=== PATIENT | female | born 1995 | race Caucasian/White ===

== ENCOUNTER 2017-06-22 02:14 | Emergency (ER) | payer SELFPAY | END 2017-06-22 02:31 | disposition left against medical advice (07) | LOC: NED 02:14 | DX: R10.9 Unspecified abdominal pain (principal); Z53.21 Procedure and treatment not carried out due to patient leaving prior to being seen by health care provider | CPT/HCPCS: 99281 ==

== ENCOUNTER 2017-08-13 15:26 | Emergency (ER) | payer OTHER ==
[2017-08-13 16:16] LABS: BILIRUBIN, URINE NEG (NEG); BLOOD, URINE MOD (NEG); GLUCOSE,URINE NEG (NEG); KETONE, URINE NEG (NEG); NITRITE,URINE NEG (NEG); PH, URINE 7.5 (5.0-8.5); URINE LEUKOCYTE ESTERASE LARGE (NEG)
[2017-08-13 16:19] LABS: URINE COLOR STRAW (YELLW/STRAW)
[2017-08-13 16:22] LABS: AUTOMATED NEUTROPHIL # 10.8 TH/MM3 (1.8-7.7); BASOPHIL % 0.3 % (0.0-2.0); EOSINOPHIL % 0.1 % (0.0-4.0); HEMATOCRIT 40.8 % (35.0-46.0); HEMO FLAGS DIFF FINAL; HEMOGLOBIN 14.2 GM/DL (11.6-15.3); LYMPH % 8.2 % (9.0-44.0); MEAN CELL VOLUME 88.4 FL (80.0-100.0); MEAN CORPUSCULAR HEMOGLOBIN 30.7 PG (27.0-34.0); MEAN CORPUSCULAR HGB CONC 34.8 % (32.0-36.0); MEAN PLATELET VOLUME 8.4 FL (7.0-11.0); MONO % 5.9 % (0.0-8.0); MONOCYTE # 0.7 TH/MM3 (0-0.9); NEUT % 85.5 % (16.0-70.0); PLATELET COUNT 372 TH/MM3 (150-450); RED BLOOD COUNT 4.62 MIL/MM3 (4.00-5.30); RED CELL DISTRIBUTION WIDTH 11.8 % (11.6-17.2); WHITE BLOOD COUNT 12.5 TH/MM3 (4.0-11.0)
[2017-08-13 16:24] LABS: METHOD OF COLLECTION CLEAN CATCH
[2017-08-13 16:25] LABS: CHLORIDE 103 MEQ/L (98-107); POTASSIUM 3.7 MEQ/L (3.5-5.1); SODIUM (NA) 135 MEQ/L (136-145); WHITE BLOOD CELL CLUMPS FEW
[2017-08-13 16:26] LABS: SQUAMOUS EPITHELIAL CELL URINE 0-1 /hpf (0-5)
[2017-08-13 16:27] LABS: BACTERIA, URINE RARE /hpf; COMMENT (UR) CULTURE INDICATED; CULTURE IF INDICATED CULTURE INDICATED
[2017-08-13 16:28] LABS: CALCIUM 8.9 MG/DL (8.5-10.1)
[2017-08-13 16:29] LABS: ALBUMIN 3.4 GM/DL (3.4-5.0); ANION GAP 7 MEQ/L (5-15); BICARBONATE 25.5 MEQ/L (21.0-32.0); BLOOD UREA NITROGEN 8 MG/DL (7-18); GLUCOSE,RANDOM 113 MG/DL (74-106); LIPASE 134 U/L (73-393)
[2017-08-13 16:31] LABS: ALT (GPT) 47 U/L (9-42); AST (GOT) 20 U/L (16-38)
[2017-08-13 16:32] LABS: CREATININE 0.58 MG/DL (0.50-1.00); GLOMERULAR FILTRATION RATE 133 ML/MIN (>89)
[2017-08-13 16:33] LABS: TOTAL BILIRUBIN ADULT 0.5 MG/DL (0.2-1.0); TOTAL PROTEIN 7.8 GM/DL (6.4-8.2)
[2017-08-13 16:34] LABS: ALKALINE PHOSPHATASE 82 U/L (45-117)
[2017-08-13 16:50] LABS: BETA HCG QUANT 10303 MIU/ML (0-5)
== END 2017-08-13 19:39 | disposition home or self-care (01) ==
LOC: PHED 15:26
DX: O26.891 Other specified pregnancy related conditions, first trimester (principal); N39.0 Urinary tract infection, site not specified; B96.20 Unspecified Escherichia coli [E. coli] as the cause of diseases classified elsewhere; Z3A.01 Less than 8 weeks gestation of pregnancy
CPT/HCPCS: 76705; 76801; 76817; 80053; 81001; 83690; 84702; 85025; 87077; 87086; 87186; 99284-25

== ENCOUNTER 2017-08-14 14:33 | Inpatient (IN) | payer SELFPAY ==
[~2017-08-14] VITALS: Ht 162.6 cm; Wt 86.5 kg
[~2017-08-14 14:33] MED LIST: MACR100C2 PO; ZOFR4TAB PO
[2017-08-14 14:44] VITALS: BP 132/71; PULSE 107; RESP 18; TEMP 99.6; O2SAT 100
[2017-08-14 16:49] LABS: BILIRUBIN, URINE NEG (NEG); BLOOD, URINE LARGE (NEG); GLUCOSE,URINE NEG (NEG); KETONE, URINE 40 mg/dL (NEG); NITRITE,URINE NEG (NEG); URINE COLOR YELLOW (YELLW/STRAW); URINE LEUKOCYTE ESTERASE LARGE (NEG)
[2017-08-14 16:56] LABS: WBC, URINE INNUM /hpf (0-5)
[2017-08-14 16:57] LABS: BACTERIA, URINE MOD /hpf; SQUAMOUS EPITHELIAL CELL URINE 0-5 /hpf (0-5)
--- NOTE | 2017-08-14 17:18 | PD ---
HPI Chief Complaint: Abdominal Pain Time Seen by Provider: 16:53 Travel History International Travel<30 days: No Contact w/Intl Traveler<30days: No Traveled to known affect area: No History of Present Illness HPI 20-year-old female complaining of abdominal pain. She says the pain started yesterday morning around 5 AM. She has been nauseated. Yesterday she was vomiting most of the day. She was a patient in the emergency department yesterday. At that time her beta titer was 10,000 303. Her white count was 12.5. An ultrasound of the pelvis showed an IUP at 5 weeks 6 days. Ultrasound of the abdomen did not show appendicitis. She did have 9-14 white cells in her urine and was treated for possible U TI she says that she has continued to have pain. She points to the right side of the lower and mid abdomen as the site of pain. She had been vomiting the day before but is been taking Zofran and has not vomited as much today. She says it feels like her stomach is going up. There has not been any vaginal bleeding PFSH Past Medical History Diminished Hearing: No Tetanus Vaccination: Unknown Influenza Vaccination: No ?: Social History Alcohol Use: Yes Tobacco Use: No Substance Use: No Allergies-Medications (Allergen,Severity, Reaction): Coded Allergies: No Known Drug Allergies (Verified Allergy, Unknown, 08/14/17) Reported Meds & Prescriptions Reported Meds & Active Scripts Active Macrobid (Nitrofurantoin Monohydrate Macrocrystals) 100 Mg Capsule 100 Mg PO BID Zofran (Ondansetron HCl) 4 Mg Tab 4 Mg PO Q6HR PRN Physical Exam Narrative GENERAL: Well-developed female SKIN: Focused skin assessment warm/dry. HEAD: Atraumatic. Normocephalic. EYES: Pupils equal and round. No scleral icterus. No injection or drainage. ENT: No nasal bleeding or discharge. Mucous membranes pink and moist. NECK: Trachea midline. No JVD. CARDIOVASCULAR: Regular rate and rhythm. No murmur appreciated. RESPIRATORY: No accessory muscle use. Clear to auscultation. Breath sounds equal bilaterally. GASTROINTESTINAL: Abdomen soft, there is some right mid abdominal tenderness without guarding or rigidity On pelvic exam there is some whitish discharge. There is some mild pain with movement of the cervix. No masses are felt. MUSCULOSKELETAL: No obvious deformities. No clubbing. No cyanosis. No edema. NEUROLOGICAL: Awake and alert. No obvious cranial nerve deficits. Motor grossly within normal limits. Normal speech. PSYCHIATRIC: Appropriate mood and affect; insight and judgment normal. Data Data Last Documented VS Vital Signs Date Time Temp Pulse Resp B/P (MAP) Pulse Ox O2 Delivery O2 Flow Rate FiO2 08/14/17 14:44 99.6 107 18 132/71 (91) 100 Orders Orders Urinalysis - C+S If Indicated (08/14/17 14:58) Ed Urine Pregnancytest Poc (08/14/17 14:58) Urine Culture (08/14/17 16:00) Complete Blood Count With Diff (08/14/17 17:15) Basic Metabolic Panel (Bmp) (08/14/17 17:15) Beta Hcg (Quant/Titer) (08/14/17 17:15) Sodium Chlor 0.9% 1000 Ml Inj (Ns 1000 M (08/14/17 17:30) Ceftriaxone Inj (Rocephin Inj) (08/14/17 17:30) Mri Abdomen W/O Contrast (08/14/17 ) Labs Laboratory Tests Test 08/14/17 16:00 Urine Color YELLOW Urine Turbidity CLOUDY Urine pH 6.0 Urine Specific [place] LESS/EQUAL 1.005 Urine Protein 100 mg/dL Urine Glucose (UA) NEG mg/dL Urine Ketones 40 mg/dL Urine Occult Blood LARGE Urine Nitrite NEG Urine Bilirubin NEG Urine Urobilinogen 0.2 MG/DL Urine Leukocyte Esterase LARGE Urine RBC 4-9 /hpf Urine WBC INNUM /hpf Urine Squamous Epithelial Cells 0-5 /hpf Urine Bacteria MOD /hpf Microscopic Urinalysis Comment CULTURE INDICATED MDM Medical Decision Making Medical Screen Exam Complete: Yes Emergency Medical Condition: Yes Medical Record Reviewed: Yes Differential Diagnosis Differential includes appendicitis, corpus luteum cyst, cervicitis, UTI Narrative Course Of note her urinalysis today shows innumerable white cells was yesterday the only 9-14 white cells. I have ordered a MRI of the abdomen to assess for possible appendicitis Christopher Morin MD August 14, 2017 17:18
[2017-08-14] MEDS ORDERED: cefTRIAXone INJ 1,000 MG in SODIUM CHLORIDE 0.9% INJ 100 ML IV ONE (17:30)
[2017-08-14] MEDS ORDERED: SODIUM CHLOR 0.9% 1000 ML INJ 1,000 ML IV ONE ×2 (17:30→21:30)
[2017-08-14 18:07] LABS: AUTOMATED NEUTROPHIL # 14.2 TH/MM3 (1.8-7.7); BASOPHIL % 0.3 % (0.0-2.0); HEMATOCRIT 41.2 % (35.0-46.0); HEMOGLOBIN 13.9 GM/DL (11.6-15.3); LYMPH % 4.8 % (9.0-44.0); LYMPHOCYTE # 0.8 TH/MM3 (1.0-4.8); MEAN CELL VOLUME 88.4 FL (80.0-100.0); MEAN CORPUSCULAR HEMOGLOBIN 29.9 PG (27.0-34.0); MEAN CORPUSCULAR HGB CONC 33.8 % (32.0-36.0); MONO % 7.8 % (0.0-8.0); MONOCYTE # 1.3 TH/MM3 (0-0.9); NEUT % 87.1 % (16.0-70.0); PLATELET COUNT 297 TH/MM3 (150-450); RED BLOOD COUNT 4.66 MIL/MM3 (4.00-5.30); RED CELL DISTRIBUTION WIDTH 11.5 % (11.6-17.2); WHITE BLOOD COUNT 16.3 TH/MM3 (4.0-11.0)
[2017-08-14 18:25] LABS: BICARBONATE 22.9 MEQ/L (21.0-32.0); CALCIUM 8.8 MG/DL (8.5-10.1)
[2017-08-14 18:29] LABS: CREATININE 0.66 MG/DL (0.50-1.00)
--- NOTE | 2017-08-14 20:24 | PD ---
Physical Exam Date Seen by Provider: August 14, 2017 Time Seen by Provider: 20:18 Narrative Accepted in transfer of care from Dr. Mortensen GENERAL: Well-developed well-nourished female no acute distress no respiratory distress; declining pain medication Data Data Last Documented VS Vital Signs Date Time Temp Pulse Resp B/P (MAP) Pulse Ox O2 Delivery O2 Flow Rate FiO2 08/14/17 21:25 99.1 95 16 102/67 (79) 99 Room Air Orders Orders Urinalysis - C+S If Indicated (08/14/17 14:58) Ed Urine Pregnancytest Poc (08/14/17 14:58) Urine Culture (08/14/17 16:00) Complete Blood Count With Diff (08/14/17 17:15) Basic Metabolic Panel (Bmp) (08/14/17 17:15) Beta Hcg (Quant/Titer) (08/14/17 17:15) Sodium Chlor 0.9% 1000 Ml Inj (Ns 1000 M (08/14/17 17:30) Ceftriaxone Inj (Rocephin Inj) (08/14/17 17:30) Mri Abdomen W/O Contrast (08/14/17 ) Sodium Chlor 0.9% 1000 Ml Inj (Ns 1000 M (08/14/17 21:30) Lactic Acid (08/14/17 21:21) Admit Order (Ed Use Only) (08/14/17 ) History Professor / Telemetry MARTHA.Q8H (08/14/17 21:39) Diet Npo (08/15/17 Breakfast) Activity Oob With Assistance (08/14/17 21:39) Notify Dr: Other (08/14/17 21:39) Ceftriaxone Inj (Rocephin Inj) (08/15/17 09:00) Admit To Inpatient (08/14/17 ) Vital Signs (Adult) Q4H (08/14/17 21:41) Activity Oob With Assistance (08/14/17 21:41) Sodium Chlor 0.9% 1000 Ml Inj (Ns 1000 M (08/14/17 21:41) Sodium Chloride 0.9% Flush (Ns Flush) (08/14/17 21:45) Sodium Chloride 0.9% Flush (Ns Flush) (08/15/17 09:00) Ondansetron Inj (Zofran Inj) (08/14/17 21:45) Basic Metabolic Panel (Bmp) (08/15/17 06:00) Comprehensive Metabolic Panel (08/15/17 06:00) Case Management Consult (08/14/17 21:41) Scd Bilateral/Knee High MARTHA.BID (08/14/17 21:41) Naloxone Inj (Narcan Inj) (08/14/17 21:45) Magnesium Hydroxide Liq (Milk Of Magnesi (08/14/17 21:45) Sennosides (Senokot) (08/14/17 21:45) Bisacodyl Supp (Dulcolax Supp) (08/14/17 21:45) Lactulose Liq (Lactulose Liq) (08/14/17 21:45) Inpatient Certification (08/14/17 ) Morphine Inj (Morphine Inj) (08/14/17 21:45) Labs Laboratory Tests Test 08/14/17 16:00 08/14/17 17:50 08/14/17 21:35 Urine Color YELLOW Urine Turbidity CLOUDY Urine pH 6.0 Urine Specific [place] LESS/EQUAL 1.005 Urine Protein 100 mg/dL Urine Glucose (UA) NEG mg/dL Urine Ketones 40 mg/dL Urine Occult Blood LARGE Urine Nitrite NEG Urine Bilirubin NEG Urine Urobilinogen 0.2 MG/DL Urine Leukocyte Esterase LARGE Urine RBC 4-9 /hpf Urine WBC INNUM /hpf Urine Squamous Epithelial Cells 0-5 /hpf Urine Bacteria MOD /hpf Microscopic Urinalysis Comment CULTURE INDICATED White Blood Count 16.3 TH/MM3 Red Blood Count 4.66 MIL/MM3 Hemoglobin 13.9 GM/DL Hematocrit 41.2 % Mean Corpuscular Volume 88.4 FL Mean Corpuscular Hemoglobin 29.9 PG Mean Corpuscular Hemoglobin Concent 33.8 % Red Cell Distribution Width 11.5 % Platelet Count 297 TH/MM3 Mean Platelet Volume 8.0 FL Neutrophils (%) (Auto) 87.1 % Lymphocytes (%) (Auto) 4.8 % Monocytes (%) (Auto) 7.8 % Eosinophils (%) (Auto) 0.0 % Basophils (%) (Auto) 0.3 % Neutrophils # (Auto) 14.2 TH/MM3 Lymphocytes # (Auto) 0.8 TH/MM3 Monocytes # (Auto) 1.3 TH/MM3 Eosinophils # (Auto) 0.0 TH/MM3 Basophils # (Auto) 0.0 TH/MM3 CBC Comment DIFF FINAL Differential Comment Blood Urea Nitrogen 7 MG/DL Creatinine 0.66 MG/DL Random Glucose 112 MG/DL Calcium Level 8.8 MG/DL Sodium Level 133 MEQ/L Potassium Level 3.5 MEQ/L Chloride Level 103 MEQ/L Carbon Dioxide Level 22.9 MEQ/L Anion Gap 7 MEQ/L Estimat Glomerular Filtration Rate 114 ML/MIN Human Chorionic Gonadotropin, Quant 68237 MIU/ML [facility] Medical Record Reviewed: Yes Supervised Visit with TYRONE: No Interpretation(s) CBC & BMP Diagram 08/14/17 17:50 Calcium Level 8.8 Vital Signs Date Time Temp Pulse Resp B/P (MAP) Pulse Ox O2 Delivery O2 Flow Rate FiO2 08/14/17 14:44 99.6 107 18 132/71 (91) 100 UA: Positive leukocyte esterase positive innumerable WBCs positive moderate bacteria; culture indicated (08/13/17 prelim cx: gm (-) rods >100k cfu/ml) Quantitative hC,263;(08/13/17: hc,303, pelvic US:single IUP 5w6d; us appendix:"no definitive fluid filled appendix identified") Differential Diagnosis Accepted in transfer of care from Dr. Mortensen; please refer to his dictation Narrative Course Accepted in transfer of care from Dr. Mortensen; follow up pending MR to r/o appendicitis; patient has received rocephin for UTI Patient has returned from undergoing MR; patient was seen yesterday for same complaint ultrasound identified 5 week 6 day intrauterine and no evidence for appendicitis; patient did have abnormal urinalysis and preliminary culture positive for greater than 100,000 colonies of gram-negative rods. At 9:29 PM patient reexamined patient has reproducible tenderness in the suprapubic distribution and primarily the right flank and right upper quadrant. Patient has had no findings for gallbladder disease; patient does not have heel strike pain on exam but reports she will strike pain with ambulation. Opportunity to have prior managing physician to compare exam from yesterday to today and has definitely changed location of discomfort is more localized to the flank. Patient given additional liter of normal saline plan will be to admit patient for observation as she does meet SIRS/sepsis criteria and ongoing IV fluids as well as IV antibiotics. I reviewed imaging studies from 08/13/17 ultrasound not convincing for acute appendicitis and MRI today reviewed with radiologist does not seem to be consistent with appendicitis in view of abnormal urinalysis and preliminary abnormal culture suspect patient is developing pyelonephritis; no anorexia, patient c/o hunger; onset of symptoms noted since around 6AM 08/13/17. Discussed w/ [facility] --admit for pyelonephritis, sepsis Sepsis Criteria SIRS Criteria (2 or more): Heart rate over 90, WBC > 94677, < 4000 or > 10% bands Sepsis Criteria (SIRS+source): Infect source susp/known (urine prelim cx from >100K cfu/ml gm (-) rods) Physician Communication Physician Communication discussed with Dr Pacheco for admission Diagnosis Primary Impression: Sepsis Additional Impressions: Pyelonephritis Pyelonephritis affecting , antepartum Qualified Codes: Z3A.01 - Less than 8 weeks gestation of Admitting Information Admitting Physician Requests: Admit Altagracia Hernandez MD August 14, 2017 20:24
--- NOTE | 2017-08-14 20:56 | RADRPT ---
EXAM DATE/TIME: 08/14/2017 19:53 [place] COMPARISON: No previous studies available for comparison. INDICATIONS : Appendicitis. Abdomen pain in right upper region while being . MEDICAL HISTORY : None. SURGICAL HISTORY : None. ENCOUNTER: Initial ACUITY: 1 day PAIN SCORE: 8/10 LOCATION: Right upper quadrant TECHNIQUE: Multiplanar, multisequence magnetic resonance imaging of the abdomen was performed without contrast. FINDINGS: LIVER: Normal size with normal signal intensity. No lesion is identified. Portal vein is within normal limi ts. BILIARY: There is no intra- or extra-hepatic biliary ductal dilatation. Gallbladder contains no stones. SPLEEN: Within normal limits. PANCREAS: Within normal limits. ADRENALS: Within normal limits. KIDNEYS: Normal size and signal intensity. There is no hydronephrosis or mass. OTHER: Aorta is nonaneurysmal. There is no lymphadenopathy. CONCLUSION: 1. No definite inflammatory changes are seen in the right lower quadrant pain. There is a gestational sac present in the uterus. Appendix is likely visualized within the right lower quadrant and is norm al caliber. Ranjith Clark MD on August 14, 2017 at 20:51 Board Certified Radiologist. This report was verified electronically.
[2017-08-14 21:25] VITALS: BP 102/67; PULSE 95; RESP 16; TEMP 99.1; O2SAT 99
[2017-08-14] MEDS ORDERED: SENNOSIDES 8.6 MG TAB PO PRN (21:45)
[2017-08-14] MEDS ORDERED: SODIUM CHLORIDE 0.9% FLUSH 10 ML FLUSH IV FLUSH PRN (21:45)
[2017-08-14] MEDS ORDERED: MORPHINE SULFATE 4 MG/ML INJ IV ONE (21:45)
[2017-08-14] MEDS ORDERED: NALOXONE HCL 0.4 MG/ML AMP IV PUSH PRN (21:45)
[2017-08-14] MEDS ORDERED: MAGNESIUM HYDROXIDE SUSP 30 ML CUP PO PRN (21:45)
[2017-08-14] MEDS ORDERED: BISACODYL 10 MG SUPP RECTAL PRN (21:45)
[2017-08-14] MEDS ORDERED: LACTULOSE SYRUP 20 GM/30 ML CUP PO PRN (21:45)
[2017-08-14] MEDS ORDERED: ONDANSETRON HCL 4 MG/2 ML VIAL IVP PRN (21:45)
[2017-08-14] MEDS ORDERED: MORPHINE SULFATE 2 MG/ML SYRINGE IV PUSH ONE (21:45)
[2017-08-14] MEDS: SODIUM CHLOR 0.9% 1000 ML INJ 1,000 ML IV SCH (22:00)
[2017-08-15] VITALS: BP_SYST 90; BP_SYST 96; BP_DIAS 52; BP_DIAS 60; PULSE 15; PULSE 90; RESP 15; TEMP 100; TEMP 98; O2SAT 100; O2SAT 96
[2017-08-15 04:00] VITALS: BP 90/60; PULSE 16; RESP 17; TEMP 96; O2SAT 95
[2017-08-15 06:56] LABS: CHLORIDE 106 MEQ/L (98-107); SODIUM (NA) 137 MEQ/L (136-145)
[2017-08-15 07:17] LABS: ALBUMIN 2.7 GM/DL (3.4-5.0); ALKALINE PHOSPHATASE 65 U/L (45-117); ALT (GPT) 27 U/L (9-42); AST (GOT) 8 U/L (16-38); BICARBONATE 23.6 MEQ/L (21.0-32.0); BLOOD UREA NITROGEN 6 MG/DL (7-18); CALCIUM 7.7 MG/DL (8.5-10.1); CREATININE 0.48 MG/DL (0.50-1.00); GLOMERULAR FILTRATION RATE 165 ML/MIN (>89); GLUCOSE,RANDOM 84 MG/DL (74-106); TOTAL BILIRUBIN ADULT 0.9 MG/DL (0.2-1.0); TOTAL PROTEIN 6.5 GM/DL (6.4-8.2)
[2017-08-15] MEDS: SODIUM CHLOR 0.9% 1000 ML INJ 1,000 ML IV SCH (08:00)
[2017-08-15 08:40] VITALS: BP 98/53; PULSE 99; RESP 20; TEMP 99.1; O2SAT 97
[2017-08-15] MEDS: cefTRIAXone INJ 2,000 MG in SODIUM CHLORIDE 0.9% INJ 100 ML IV SCH (09:03)
[2017-08-15] MEDS: SODIUM CHLORIDE 0.9% FLUSH 10 ML FLUSH IV FLUSH SCH ×2 (09:04→19:13)
--- NOTE | 2017-08-15 09:46 | HHI.HP ---
[facility] No Primary Care Physician Admission Diagnosis sepsis; pyelonephritis Diagnoses: (1) Sepsis Diagnosis: Principal (2) Pyelonephritis Diagnosis: Principal (3) Diagnosis: Principal Chief Complaint: Abdominal pain Travel History International Travel<30 Days: No Contact w/Intl Traveler <30 Da: No Traveled to Known Affected Are: No History of Present Illness This is a 21-year-old female with no chronic medical illnesses who presented to the emergency department approximately 2 days ago because of acute onset of right lower quadrant abdominal pain, nausea, vomiting. Patient was originally seen in emergency department and found to have urinary tract infection. Patient was treated and sent home on Macrobid for antibiotics. Patient did not improve so she came back to the emergency department for evaluation. Patient did undergo MRI evaluation which did not indicate any obstructive process. Patient did meet septic criteria with leukocytosis, tachycardia, urinary tract infection in a patient with known . It was recommended by the ER physician that the patient be admitted for further evaluation and management. Review of Systems Gastrointestinal: COMPLAINS OF: Abdominal pain, Nausea, Vomiting Except as stated in HPI: all other systems reviewed are Neg Past Family Social History Past Medical History No chronic medical illnesses Past Surgical History No previous surgeries Reported Medications Reported Meds & Active Scripts Active Macrobid (Nitrofurantoin Monohydrate Macrocrystals) 100 Mg Capsule 100 Mg PO BID Zofran (Ondansetron HCl) 4 Mg Tab 4 Mg PO Q6HR PRN Allergies: Coded Allergies: No Known Drug Allergies (Verified Allergy, Unknown, 08/14/17) Family History Reviewed and significant for mother having history of breast cancer Social History Patient denies any tobacco, alcohol or illicit drug Physical Exam Vital Signs Vital Signs Date Time Temp Pulse Resp B/P (MAP) Pulse Ox O2 Delivery O2 Flow Rate FiO2 08/15/17 08:40 99.1 99 20 98/53 (68) 97 08/15/17 04:00 96.0 16 17 90/60 (70) 95 08/15/17 00:00 100.0 90 15 90/60 (70) 96 08/15/17 00:00 98.0 15 15 96/52 (67) 100 08/14/17 21:25 99.1 95 16 102/67 (79) 99 Room Air 08/14/17 14:44 99.6 107 18 132/71 (91) 100 Physical Exam GENERAL: Well-developed, well-nourished, in no acute distress. alert and orientated HEENT: Head is normocephalic without any lesions or masses noted. Facial features are symmetric. Eyes: Pupils equal round reactive to light. Extraocular muscles are intact. Conjunctivae were clear. Oropharyngeal: Pharynx without any erythema edema. Tongue is midline without deviation. Buccal mucosa is moist without any masses or lesions NECK: Supple without any masses. Trachea midline no deviation. No JVD, no bruits are appreciated CARDIAC: Regular rhythm, regular rate. S1/S2 are heard. No murmurs gallops or rubs. LUNGS: Clear to auscultation bilaterally. No wheeze, rhonchi or rales. No use of accessory muscles on inspiration or expiration. ABDOMEN: Soft, nontender. Nondistended. Bowel sounds heard in all 4 quadrants. No organomegaly or masses. Negative rebound, negative guarding EXTREMITIES: No edema, pulses are equal bilaterally. No cyanosis or clubbing NEUROLOGY: Mood and affect appear appropriate. Cranial nerves II through XII grossly intact. Muscle strength 5/5 in upper and lower extremities bilaterally. Deep tendon reflexes are 2+ in upper and lower extremities bilaterally. Laboratory Laboratory Tests Test 08/14/17 16:00 08/14/17 17:50 08/14/17 21:35 08/15/17 05:40 Urine Color YELLOW Urine Turbidity CLOUDY Urine pH 6.0 Urine Specific [place] LESS/EQUAL 1.005 Urine Protein 100 Urine Glucose (UA) NEG Urine Ketones 40 Urine Occult Blood LARGE Urine Nitrite NEG Urine Bilirubin NEG Urine Urobilinogen 0.2 Urine Leukocyte Esterase LARGE Urine RBC 4-9 Urine WBC INNUM Urine Squamous Epithelial Cells 0-5 Urine Bacteria MOD Microscopic Urinalysis Comment CULTURE INDICATED White Blood Count 16.3 Red Blood Count 4.66 Hemoglobin 13.9 Hematocrit 41.2 Mean Corpuscular Volume 88.4 Mean Corpuscular Hemoglobin 29.9 Mean Corpuscular Hemoglobin Concent 33.8 Red Cell Distribution Width 11.5 Platelet Count 297 Mean Platelet Volume 8.0 Neutrophils (%) (Auto) 87.1 Lymphocytes (%) (Auto) 4.8 Monocytes (%) (Auto) 7.8 Eosinophils (%) (Auto) 0.0 Basophils (%) (Auto) 0.3 Neutrophils # (Auto) 14.2 Lymphocytes # (Auto) 0.8 Monocytes # (Auto) 1.3 Eosinophils # (Auto) 0.0 Basophils # (Auto) 0.0 CBC Comment DIFF FINAL Differential Comment Blood Urea Nitrogen 7 6 Creatinine 0.66 0.48 Random Glucose 112 84 Calcium Level 8.8 7.7 Sodium Level 133 137 Potassium Level 3.5 3.2 Chloride Level 103 106 Carbon Dioxide Level 22.9 23.6 Anion Gap 7 7 Estimat Glomerular Filtration Rate 114 165 Human Chorionic Gonadotropin, Quant 78168 Lactic Acid Level 1.1 Total Protein 6.5 Albumin 2.7 Alkaline Phosphatase 65 Aspartate Amino Transf (AST/SGOT) 8 Alanine Aminotransferase (ALT/SGPT) 27 Total Bilirubin 0.9 Date/Time Source Procedure Growth Status 08/14/17 16:00 Urine Clean Catch Urine Culture Pending Received Result Diagram: 08/14/17 1750 08/15/17 0540 Imaging Last Impressions Abdomen MRI 08/14/17 0000 Signed Impressions: Service Date/Time: Monday, August 14, 2017 19:53 - CONCLUSION: 1. No definite inflammatory changes are seen in the right lower quadrant pain. There is a gestational sac present in the uterus. Appendix is likely visualized within the right lower quadrant and is normal caliber. Ranjith Clark MD Septic Shock Reassessment Septic shock perfusion: reassessment completed Caprini VTE Risk Assessment Caprini VTE Risk Assessment: No/Low Risk (score <= 1) Caprini Risk Assessment Model Point Value = 1 Point Value = 2 Point Value = 3 Point Value = 5 Age 41-60 Minor surgery BMI > 25 kg/m2 Swollen legs Varicose veins or History of unexplained or recurrent spontaneous Oral contraceptives or hormone replacement Sepsis (< 1 month) Serious lung disease, including pneumonia (< 1 month) Abnormal pulmonary function Acute myocardial infarction Congestive heart failure (< 1 month) History of inflammatory bowel disease Medical patient at bed rest Age 61-74 Arthroscopic surgery Major open surgery (> 45 min) Laparoscopic surgery (> 45 min) Malignancy Confined to bed (> 72 hours) Immobilizing plaster cast Central venous access Age >= 75 History of VTE Family history of VTE Factor V Leiden Prothrombin [id number] Lupus anticoagulant Anticardiolipin antibodies Elevated serum homocysteine Heparin-induced thrombocytopenia Other congenital or acquired thrombophilia Stroke (< 1 month) Elective arthroplasty Hip, pelvis, or leg fracture Acute spinal cord injury (< 1 month) Prophylaxis Regimen Total Risk Factor Score Risk Level Prophylaxis Regimen 0-1 Low Early ambulation 2 Moderate Order ONE of the following: *Sequential Compression Device (SCD) *Heparin 5000 units SQ BID 3-4 Higher Order ONE of the following medications: *Heparin 5000 units SQ TID *Enoxaparin/Lovenox 40 mg SQ daily (WT < 150 kg, CrCl > 30 mL/min) *Enoxaparin/Lovenox 30 mg SQ daily (WT < 150 kg, CrCl > 10-29 mL/min) *Enoxaparin/Lovenox 30 mg SQ BID (WT < 150 kg, CrCl > 30 mL/min) AND/OR *Sequential Compression Device (SCD) 5 or more Highest Order ONE of the following medications: *Heparin 5000 units SQ TID (Preferred with Epidurals) *Enoxaparin/Lovenox 40 mg SQ daily (WT < 150 kg, CrCl > 30 mL/min) *Enoxaparin/Lovenox 30 mg SQ daily (WT < 150 kg, CrCl > 10-29 mL/min) *Enoxaparin/Lovenox 30 mg SQ BID (WT < 150 kg, CrCl > 30 mL/min) AND *Sequential Compression Device (SCD) Assessment and Plan Assessment and Plan Sepsis secondary to urinary tract infection -Patient met criteria on admission with leukocytosis, tachycardia, urinary tract infection -Patient started on Rocephin -MRI does not indicate any obstructive process, there is no mention of any stranding around the kidneys. Gestational sac was located within the uterus. -Continue to follow culture for appropriate antibiotics First trimester -Patient to keep outpatient appointment with [facility] Hypokalemia -Replace and continue monitor DVT prevention -Low risk, early ambulation Physician Certification 2 Midnight Certification Type: Admission for Inpatient Services Order for Inpatient Services The services are ordered in accordance with Medicare regulations or non- Medicare payer requirements, as applicable. In the case of services not specified as inpatient-only, they are appropriately provided as inpatient services in accordance with the 2-midnight benchmark. Estimated LOS (days): 2 days is the estimated time the patient will need to remain in the hospital, assuming treatment plan goals are met and no additional complications. Post-Hospital Plan: Not yet determined Problem Qualifiers (1) : Qualified Codes: Z3A.01 - Less than 8 weeks gestation of Adan Viveros August 15, 2017 09:46
[2017-08-15] MEDS: NS + KCL 20 MEQ INJ 1,000 ML IV SCH ×2 (10:00→20:18)
[2017-08-15] MEDS ORDERED: POTASSIUM CHLORIDE 20 MEQ CONTROLLED RELEASE TAB PO ONE (10:00)
[2017-08-15 10:10] LABS: AUTOMATED NEUTROPHIL # 9.6 TH/MM3 (1.8-7.7); BASOPHIL % 0.2 % (0.0-2.0); EOSINOPHIL % 0.3 % (0.0-4.0); HEMATOCRIT 35.7 % (35.0-46.0); HEMOGLOBIN 12.6 GM/DL (11.6-15.3); LYMPH % 10.7 % (9.0-44.0); LYMPHOCYTE # 1.3 TH/MM3 (1.0-4.8); MEAN CELL VOLUME 89.7 FL (80.0-100.0); MEAN CORPUSCULAR HEMOGLOBIN 31.6 PG (27.0-34.0); MEAN CORPUSCULAR HGB CONC 35.2 % (32.0-36.0); MEAN PLATELET VOLUME 7.6 FL (7.0-11.0); MONO % 11.1 % (0.0-8.0); MONOCYTE # 1.4 TH/MM3 (0-0.9); NEUT % 77.7 % (16.0-70.0); PLATELET COUNT 243 TH/MM3 (150-450); RED BLOOD COUNT 3.98 MIL/MM3 (4.00-5.30); RED CELL DISTRIBUTION WIDTH 12.1 % (11.6-17.2); WHITE BLOOD COUNT 12.3 TH/MM3 (4.0-11.0)
[2017-08-15 12:38] VITALS: BP 100/57; PULSE 96; RESP 16; TEMP 98.4; O2SAT 98
[2017-08-15 16:29] VITALS: BP 100/55; PULSE 87; RESP 17; TEMP 97.3; O2SAT 97
[2017-08-16] VITALS: BP 167/86; PULSE 69; RESP 15; TEMP 99; O2SAT 95
[2017-08-16 01:43] VITALS: BP 101/61; PULSE 89; RESP 15; TEMP 97.3; O2SAT 98
[2017-08-16] MEDS: NS + KCL 20 MEQ INJ 1,000 ML IV SCH (06:16)
[2017-08-16 06:53] LABS: AUTOMATED NEUTROPHIL # 7.1 TH/MM3 (1.8-7.7); BASOPHIL % 0.3 % (0.0-2.0); EOSINOPHIL # 0.1 TH/MM3 (0-0.4); EOSINOPHIL % 0.6 % (0.0-4.0); HEMATOCRIT 35.3 % (35.0-46.0); HEMOGLOBIN 11.7 GM/DL (11.6-15.3); LYMPH % 10.9 % (9.0-44.0); MEAN CELL VOLUME 90.6 FL (80.0-100.0); MEAN CORPUSCULAR HGB CONC 33.2 % (32.0-36.0); NEUT % 77.2 % (16.0-70.0); PLATELET COUNT 207 TH/MM3 (150-450); WHITE BLOOD COUNT 9.2 TH/MM3 (4.0-11.0)
[2017-08-16 07:08] LABS: BICARBONATE 23.3 MEQ/L (21.0-32.0); MAGNESIUM 1.8 MG/DL (1.5-2.5)
[2017-08-16 07:11] LABS: CREATININE 0.41 MG/DL (0.50-1.00)
[2017-08-16 08:00] VITALS: BP 99/55; PULSE 80; RESP 20; TEMP 99.1; O2SAT 96
[2017-08-16] MEDS: cefTRIAXone INJ 2,000 MG in SODIUM CHLORIDE 0.9% INJ 100 ML IV SCH (08:35)
[2017-08-16] MEDS: SODIUM CHLORIDE 0.9% FLUSH 10 ML FLUSH IV FLUSH SCH (08:37)
--- NOTE | 2017-08-16 08:49 | HHI.DCPOC ---
Discharge Care Plan Diagnosis: (1) Sepsis (2) Pyelonephritis Goals to Promote Your Health * To prevent worsening of your condition and complications * To maintain your health at the optimal level Directions to Meet Your Goals Take your medications as prescribed Follow your dietary instruction Follow activity as directed Keep your appointments as scheduled Take your immunizations and boosters as scheduled If your symptoms worsen call your PCP, if no PCP go to Urgent Care Center or Emergency Room Smoking is Dangerous to Your Health. Avoid second hand smoke Call the 24-hour hour crisis hotline for domestic abuse at Adan Viveros August 16, 2017 08:49
--- NOTE | 2017-08-16 09:57 | HHI.DS ---
Discharge Summary Admission Date August 14, 2017 at 21:41 Discharge Date: August 16, 2017 Admitting Diagnosis sepsis; pyelonephritis (1) Sepsis ICD Code: A41.9 - Sepsis, unspecified organism Diagnosis: Principal Status: Acute (2) Pyelonephritis ICD Code: N12 - Tubulo-interstitial nephritis, not specified as acute or chronic Diagnosis: Principal Status: Acute (3) ICD Code: Z34.90 - Encounter for supervision of normal , unspecified, unspecified trimester Diagnosis: Principal Status: Acute Procedures None Brief History - From Admission This is a 21-year-old female with no chronic medical illnesses who presented to the emergency department approximately 2 days ago because of acute onset of right lower quadrant abdominal pain, nausea, vomiting. Patient was originally seen in emergency department and found to have urinary tract infection. Patient was treated and sent home on Macrobid for antibiotics. Patient did not improve so she came back to the emergency department for evaluation. Patient did undergo MRI evaluation which did not indicate any obstructive process. Patient did meet septic criteria with leukocytosis, tachycardia, urinary tract infection in a patient with known . It was recommended by the ER physician that the patient be admitted for further evaluation and management. CBC/BMP: 08/16/17 0600 08/16/17 0600 Significant Findings Laboratory Tests Test 08/14/17 16:00 08/14/17 17:50 08/14/17 21:35 08/15/17 05:40 Urine Turbidity CLOUDY (CLEAR) Urine Protein 100 mg/dL (NEG-TRACE) Urine Ketones 40 mg/dL (NEG) Urine Occult Blood LARGE (NEG) Urine Leukocyte Esterase LARGE (NEG) Urine RBC 4-9 /hpf (0-3) Urine WBC INNUM /hpf (0-5) Urine Bacteria MOD /hpf (NONE) White Blood Count 16.3 TH/MM3 (4.0-11.0) Red Cell Distribution Width 11.5 % (11.6-17.2) Neutrophils (%) (Auto) 87.1 % (16.0-70.0) Lymphocytes (%) (Auto) 4.8 % (9.0-44.0) Neutrophils # (Auto) 14.2 TH/MM3 (1.8-7.7) Lymphocytes # (Auto) 0.8 TH/MM3 (1.0-4.8) Monocytes # (Auto) 1.3 TH/MM3 (0-0.9) Random Glucose 112 MG/DL (74-106) Sodium Level 133 MEQ/L (136-145) Human Chorionic Gonadotropin, Quant 72822 MIU/ML (0-5) Blood Urea Nitrogen 6 MG/DL (7-18) Creatinine 0.48 MG/DL (0.50-1.00) Albumin 2.7 GM/DL (3.4-5.0) Calcium Level 7.7 MG/DL (8.5-10.1) Aspartate Amino Transf (AST/SGOT) 8 U/L (16-38) Potassium Level 3.2 MEQ/L (3.5-5.1) Test 08/15/17 10:00 08/16/17 06:00 White Blood Count 12.3 TH/MM3 (4.0-11.0) Red Blood Count 3.98 MIL/MM3 (4.00-5.30) 3.90 MIL/MM3 (4.00-5.30) Neutrophils (%) (Auto) 77.7 % (16.0-70.0) 77.2 % (16.0-70.0) Monocytes (%) (Auto) 11.1 % (0.0-8.0) 11.0 % (0.0-8.0) Neutrophils # (Auto) 9.6 TH/MM3 (1.8-7.7) Monocytes # (Auto) 1.4 TH/MM3 (0-0.9) 1.0 TH/MM3 (0-0.9) Blood Urea Nitrogen 3 MG/DL (7-18) Creatinine 0.41 MG/DL (0.50-1.00) Calcium Level 8.0 MG/DL (8.5-10.1) Chloride Level 108 MEQ/L (98-107) Imaging Last Impressions Abdomen MRI 08/14/17 0000 Signed Impressions: Service Date/Time: Monday, August 14, 2017 19:53 - CONCLUSION: 1. No definite inflammatory changes are seen in the right lower quadrant pain. There is a gestational sac present in the uterus. Appendix is likely visualized within the right lower quadrant and is normal caliber. Ranjith Clark MD PE at Discharge GENERAL: Well-developed, well-nourished, in no acute distress. alert and orientated HEENT: Head is normocephalic without any lesions or masses noted. Facial features are symmetric. Eyes: Extraocular muscles are intact. NECK: Supple without any masses. Trachea midline no deviation. No JVD, CARDIAC: Regular rhythm, regular rate. S1/S2 are heard. No murmurs gallops or rubs. LUNGS: Clear to auscultation bilaterally. No wheeze, rhonchi or rales. No use of accessory muscles on inspiration or expiration. ABDOMEN: Soft, nontender. Nondistended. Bowel sounds heard in all 4 quadrants. No organomegaly or masses. Negative rebound, negative guarding EXTREMITIES: No edema, pulses are equal bilaterally. No cyanosis or clubbing NEUROLOGY: Mood and affect appear appropriate. Cranial nerves II through XII grossly intact. Moving all extremities, speech is clear Hospital Course 21-year-old female who originally seen in the emergency department for urinary tract infection and was prescribed Macrobid and discharged home. Patient did not improve she continued to have pain so she came back to the emergency department for evaluation. Patient did have workup and indicated that she is roughly 5-6 weeks . MRI was performed of the abdomen which did not indicate any obstructive process or any stranding around the kidney was. Patient failed outpatient management for urinary tract infection in the patient. She did have signs of sepsis with leukocytosis, tachycardia, infectious process. Patient was admitted to the hospital with Rocephin with continued improvement. She no longer meets criteria for sepsis. Cultures have come back with E. coli. Sensitivities will be evaluated and patient be discharged home with appropriate antibiotics. Plan discharge accordingly. Discussed with OB hospitalist who indicated that Keflex would be an appropriate antibiotic upon discharge. Pt Condition on Discharge: Stable Discharge Disposition: Discharge Home Discharge Time: > 30 minutes Discharge Instructions DIET: Follow Instructions for: As Tolerated, No Restrictions Activities you can perform: Regular-No Restrictions Follow up Referrals: PCP Follow-up - 1 Week Adan Viveros August 16, 2017 09:57
[2017-08-16] MEDS ORDERED: CEPH-460 PO (11:36)
== END 2017-08-16 12:47 | disposition home or self-care (01) | DRG 781 ==
LOC: PHED 14:33 → PHEDA 21:41 → PH3B 22:55
PROVIDERS: ADMIT Hospitalist; ATTEND Hospitalist
DX: O98.811 Other maternal infectious and parasitic diseases complicating pregnancy, first trimester (principal); O23.01 Infections of kidney in pregnancy, first trimester; O99.281 Endocrine, nutritional and metabolic diseases complicating pregnancy, first trimester; E87.6 Hypokalemia; Z3A.01 Less than 8 weeks gestation of pregnancy
CPT/HCPCS: 74181; 80048; 80053; 81001; 83605; 83735; 84702; 84703; 85025; 87086; 96365; J0696; J2270; J2405; J3480; J7030

== ENCOUNTER 2018-04-02 05:38 | Inpatient (IN) ==
--- NOTE | 2018-03-30 11:17 | MH ---
cc: Ranjan George MD DATE OF ADMISSION: 04/02/2018 DATE Of ANTICIPATED ADMISSION: 04/02/2018 CHIEF COMPLAINT: Scheduled primary . HISTORY OF PRESENT ILLNESS: This patient is a 22-year-old, G1, who will be at 39 weeks and 0 days by LMP consistent with 11-week ultrasound with estimated due date of 04/09/2018, admitted for a scheduled primary secondary to suspected macrosomia. Her has been complicated by this and obesity. PAST MEDICAL HISTORY: Obesity. PAST SURGICAL HISTORY: None. ALLERGIES: NO KNOWN DRUG ALLERGIES. MEDICATIONS: vitamins and aspirin 81 mg. OBSTETRICAL HISTORY: G1. TERMINAL MAKE UP OPERATOR HISTORY: Denies any history of STDs, LMP 07/03/2017. FAMILY HISTORY: No pertinent positive family. SOCIAL HISTORY: No tobacco, alcohol or drug use. The father of her baby is named Rick. They are from [place]. PHYSICAL EXAMINATION: GENERAL: Alert and oriented x3, resting comfortably in bed, in no acute distress. PULMONARY: Lungs are clear to auscultation bilaterally. CARDIOVASCULAR: Regular rate and rhythm. ABDOMEN: Soft, gravid, nontender. : Deferred. EXTREMITIES: No clubbing, cyanosis or edema. FINAL ASSESSMENT AND PLAN: The patient is a 22-year-old G1, at 39 weeks and 0 days with estimated due date of 04/09/2018, admitted for . 1. Intrauterine . Will be placed on monitoring upon presentation to the hospital. Anterior placenta, male fetus. 2. Macrosomia. Estimated weight on 03/23/2018 was 4525 grams in the 99th percentile. Cephalic. Discussed implications and risks for delivery and maternal and complications. The patient elected to pursue . Discussed the risks of delivery. Ranjan George MD ZST/ct , 10:50 AM , 10:57 AM
[2018-04-02] MEDS ORDERED: ceFAZolin 2 GM Premix Inj 2 GM/50 ML PIGGYBACK IV.SIG PRN (06:17)
[2018-04-02 06:19] LABS: Baso % (Auto) 0.4 % (0.0-2.0); Eos # (Auto) 0.1 th/mm3 (0.0-0.4); Eos % (Auto) 0.9 % (0.0-4.0); Hemoglobin 10.6 gm/dL (11.6-15.3); Lymph # (Auto) 2.2 th/mm3 (1.0-4.8); Lymph % (Auto) 23.5 % (9.0-44.0); Mean Corpuscular Hemoglobin 24.3 pg (27.0-34.0); Mean Corpuscular Volume 73.4 fL (80.0-100.0); Mean Platelet Volume 8.6 fL (7.0-11.0); Mono # (Auto) 0.8 th/mm3 (0.0-0.9); Mono % (Auto) 8.5 % (0.0-8.0); Neut # (Auto) 6.2 th/mm3 (1.8-7.7); Neut % (Auto) 66.7 % (16.0-70.0); Platelet Count 256 th/mm3 (150-450); Red Blood Count 4.35 mil/mm3 (4.00-5.30); Red Cell Distribution Width 15.6 % (11.6-17.2); White Blood Count 9.3 th/mm3 (4.0-11.0)
[2018-04-02] MEDS ORDERED: Citric Acid/Sodium Citrate Liq 30 ML UDC PO SCH (06:30)
[2018-04-02 06:31] LABS: Bilirubin,Urine Negative (Negative); Clarity,Urine Hazy (Clear); Color,Urine Yellow (Yellw/Straw); Glucose,Urine (UA) Negative (Negative); Leukocyte Esterase,Urine Negative (Negative); Mucus,Urine Few /lpf (Occasional); Nitrite,Urine Negative (Negative); Specific Gravity,Urine 1.016 (1.002-1.035); Squamous Epithelial Cell,Urine 7 /hpf (0-5)
[2018-04-02] MEDS ORDERED: Acetaminophen 325 MG Tablet PO PRN (07:11)
--- NOTE | 2018-04-02 07:11 | P.OP ---
Surgeon: Ranjan George MD Operation and Findings: Preoperative diagnosis: 1. Intrauterine at 39 weeks 0 days 2. Suspected macrosomia 3. Maternal obesity Postop diagnosis 1. Same as above Procedure 1. Primary low transverse section Surgeon Dr. Ranjan George [employer] Operator: Cassy labor and delivery scrub staff Findings: 1. Viable male at 8:08 AM, Apgars 7 and 9, weight 4850 g. 2. Intact placenta 3 vessel cord at 8:09 AM 3. Normal uterus, bilateral fallopian tubes and ovaries Anesthesia: Spinal with Astramorph Specimen: Placenta to disposal Estimated blood loss: 500 cc Fluid replacement: 2 L lactated Ringer's and Pitocin Urine output: 150 cc clear urine Via [place] DVT prophylaxis: Sequential compression devices throughout the case Antibiotics: 2 g Ancef preoperatively Counts: correct x2 Time out done: yes Disposition: Stable to PACU then Indications: 22-year-old G1 who was followed in outpatient setting during her entire she was measuring size greater than dates and had ultrasounds that always showed greater than the 90th percentile, at a recent US the estimated weight was greater than 4500 g we discussed risks of dystocia and inaccuracies of ultrasound. The patient elected to proceed with a for delivery Description of procedure: The patient was taken to the operating room and after spinal anesthesia was performed she was positioned and supine position with arms out in a left lateral tilt, the abdomen was prepped and draped in sterile fashion, a Pfannenstiel incision was made and carried down sharply to the fascia which was nicked on either side of the midline, this was extended bilaterally, the fascia was elevated superiorly and inferiorly and the rectus muscles were sharply dissected off the overlying fascia, the peritoneum was entered digitally and retracted laterally. A bladder flap was developed with Metzenbaum scissors at the lower uterine segment, the hysterotomy was made in the lower uterine segment with a scalpel in a curvilinear fashion, it was extended cephalad-caudad manner, I inserted my hand into the hysterotomy and the head was elevated to the hysterotomy and with fundal pressure was delivered. With gentle downward and upward guidance the anterior and posterior shoulder was delivered, followed by the torso and lower extremities with ease, the had spontaneous cry the cord was clamped and cut, the was handed off to nursing staff after delayed cord clamping was allowed. Pitocin was bolused and with uterine massage and cord traction the placenta was delivered, uterus was cleared of clot and debris, the uterus was exteriorized and the hysterotomy was closed with 2 layers, first with 0 locking delayed absorbable braided suture, and a second imbricating layer of the same suture. The abdomen and hysterotomy were irrigated, inspected, and found to be hemostatic. The fascia was closed from left to right with 0 running delayed absorbable suture. The subcutaneous tissue was irrigated, inspected, hemostasis was appreciated, the space was closed with running 2-0 delayed absorbable monofilament suture. The skin was closed with 3-0 delayed absorbable monofilament suture in a subcuticular fashion and then a dressing was applied and the patient tolerated procedure well was transferred to PACU.
[2018-04-02] MEDS ORDERED: fentaNYL Citrate Inj 100 MCG/2 ML Ampul ONE (07:13)
[2018-04-02] MEDS ORDERED: Morphine Sulfate PF Inj 5 MG/10 ML Ampul ONE (07:13)
[2018-04-02] MEDS ORDERED: Oxytocin 30 Units/500ml Premix 30 UNITS/500 ML BAG IV.SIG ONE (07:30)
[2018-04-02] MEDS ORDERED: Naloxone Inj 0.4 MG/ML Vial IV.PUSH PRN (07:45)
[2018-04-02] MEDS ORDERED: Ketorolac Inj 30 MG/ML (IVP) Vial ONE (09:55)
[2018-04-02] MEDS ORDERED: Ketorolac Inj 30 MG/ML (IVP) Vial IV.PUSH ONE (10:00)
[2018-04-02] MEDS: Prenatal Vit/Ca/Iron/Folic Acid Tablet PO SCH (10:06)
[2018-04-02] MEDS ORDERED: Oxytocin 30 Units/500ml Premix 30 UNITS/500 ML BAG IV.SIG PRN (12:11)
[2018-04-02] MEDS: Ketorolac Inj 30 MG/ML (IVP) Vial IV.PUSH SCH ×2 (16:03→21:42)
--- NOTE | 2018-04-02 18:14 | P.OBGPN ---
queried PDMP and reviewed report
[2018-04-03] MEDS: Ketorolac Inj 30 MG/ML (IVP) Vial IV.PUSH SCH ×2 (03:58→10:08)
--- NOTE | 2018-04-03 05:19 | P.PNOB ---
Subjective Post op day: 1 Interval history: doing well, pain controlled ambulating w/o problems, VB < menses, tolerating diet no n/v. Objective Vital Signs/I&O: Vital Signs 04/02/18 05:58 04/02/18 06:00 04/02/18 06:25 Temperature 98.6 F 98.6 F Pulse Rate 96 H 81 Respiratory Rate 16 16 Blood Pressure 117/57 L 122/73 04/02/18 06:30 04/02/18 08:55 04/02/18 09:06 Temperature 97.5 F L Pulse Rate 74 12 L 72 Respiratory Rate 12 16 Blood Pressure 121/77 110/58 L 106/56 L 04/02/18 09:18 04/02/18 09:31 04/02/18 09:40 Temperature 97.5 F L Pulse Rate 73 95 H Respiratory Rate 12 18 Blood Pressure 108/60 103/55 L 04/02/18 09:50 04/02/18 09:52 04/02/18 10:04 Temperature Pulse Rate 64 77 Respiratory Rate 16 13 22 Blood Pressure 108/67 104/53 L 04/02/18 11:10 04/02/18 16:00 04/02/18 19:07 Temperature 97.5 F L 98.0 F 98.0 F Pulse Rate 80 69 76 Respiratory Rate 18 18 16 Blood Pressure 105/61 99/51 L 97/59 L 04/03/18 01:00 Temperature 98.0 F Pulse Rate 84 Respiratory Rate 18 Blood Pressure 91/50 L Intake & Output 04/02/18 04/02/18 04/03/18 06:59 18:59 06:59 Intake Total 50 / 50 Balance 50 / 50 Weight 233 kg 105.687 kg Intake: IV 50 / 50 Ancef 2 GM Premix Inj 2 gm In 50 / 50 50 ml @ 100 mls/hr IV.SIG BEVERAGE SERVER PRN Rx#:[id number] Result Diagrams: 04/03/18 05:52 Objective Remarks: GENERAL: Well-nourished, well-developed patient. CARDIOVASCULAR: Regular rate and rhythm without murmurs, gallops, or rubs. RESPIRATORY: Breath sounds equal bilaterally. No accessory muscle use. ABDOMEN/GI: Abdomen soft, non-tender, bowel sounds present. bandage Clean, dry and intact. Fundus: Firm, non-tender at umbilicus. GENITOURINARY: Light to moderate bleeding. EXTREMITIES: No cyanosis or edema, non-tender, without signs of DVT. Medications and IVs: Active Medications Acetaminophen (Tylenol) 650 mg PO Q6H PRN PRN Reason: PAIN SCALE 1 TO 2 Citric Acid/Sodium Citrate (Sodium Citrate/Citric Acid Liq) 30 ml PO BEVERAGE SERVER [facility] Stop: 04/06/18 06:29 Diphenhydramine HCl (Benadryl Inj) 25 mg IV.PUSH Q6H PRN PRN Reason: MILD TO MODERATE ITCHING Stop: 04/03/18 10:51 Last Admin: 04/02/18 11:33 Dose: 25 mg Diphenhydramine HCl (Benadryl) 50 mg PO Q6H PRN PRN Reason: MILD TO MODERATE ITCHING Stop: 04/03/18 10:51 Diphtheria/Pertussis/Tetanus Vacc (Boostrix Vaccine Inj) 0.5 ml IM .ONCE ONE Stop: 04/03/18 16:01 Cefazolin Sodium/Dextrose (Ancef 2 Gm Premix Inj) 2 gm in 50 mls @ 100 mls/hr IV.SIG BEVERAGE SERVER PRN PRN Reason: hotel yardperson to the OR Stop: 04/06/18 06:16 Last Infusion: 04/02/18 08:00 Dose: Infused Lactated Ringer's (Lr 1000 Ml Inj) 1,000 mls @ 100 mls/hr IV.CONT .Q10H [facility] Stop: 04/03/18 08:10 Last Admin: 04/02/18 21:47 Dose: Not Given Oxytocin (Pitocin 30 Units/Ns 500 Ml Premix) 30 units in 500 mls @ 100 mls/hr IV.SIG UNSCH PRN PRN Reason: Heavy bleeding Ibuprofen (Motrin) 800 mg PO Q8H PRN PRN Reason: cramping Ketorolac Tromethamine (Toradol Inj) 15 mg IV.PUSH Q6H [facility] Stop: 04/03/18 15:59 Last Admin: 04/03/18 03:58 Dose: 15 mg Measles/Mumps/Rubella Vaccine Live (M-M-R Ii Vaccine Inj) 0.5 ml SQ .ONCE ONE Stop: 04/03/18 16:01 Miscellaneous Information ([facility]) 1 each OTHER UNSCH PRN PRN Reason: SEE LABEL COMMENTS Stop: 04/03/18 07:44 Miscellaneous Information ([facility]) 1 each OTHER UNSCH PRN PRN Reason: SEE LABEL COMMENTS Stop: 04/03/18 07:44 Naloxone HCl (Narcan Inj) 0.4 mg IV.PUSH UNSCH PRN PRN Reason: SEE LABEL COMMENTS Stop: 04/03/18 07:44 Ondansetron HCl (Zofran Odt) 4 mg PO Q4H PRN PRN Reason: NAUSEA Oxycodone/Acetaminophen (Percocet 5/325 Mg) 1 tab PO Q4H PRN PRN Reason: PAIN SCALE 3 TO 5 Oxycodone/Acetaminophen (Percocet 5/325 Mg) 2 tab PO Q4H PRN PRN Reason: PAIN SCALE 6 TO 10 Last Admin: 04/03/18 00:34 Dose: 2 tab Vit/Calcium/Iron/Folic Ac (Stuartnatal Plus 3) 1 tab PO DAILY [facility] Last Admin: 04/02/18 10:06 Dose: Not Given Sodium Chloride (Ns Flush) 2 ml IV.FLUSH BID [facility] Last Admin: 04/02/18 21:42 Dose: 2 ml Sodium Chloride (Ns Flush) 2 ml IV.FLUSH UNSCH PRN PRN Reason: FLUSH AFTER USING IV ACCESS Last Admin: 04/03/18 03:59 Dose: 2 ml Assessment and Plan - Plan 22 yo s/p scheduled PLTCS at 39w for suspected macrosomia 1. POD #1: AF, VSS, AM Hb noted and appropriate, continue routine post op and care, discussed precautions, expectations and follow up. Anticipate d/c in next 48hrs - Male . Discussed circumcision, pt brittneyed, andre tomorrow or sometime b4 d/c.
[2018-04-03 06:14] LABS: Baso % (Auto) 0.3 % (0.0-2.0); Eos # (Auto) 0.1 th/mm3 (0.0-0.4); Eos % (Auto) 0.9 % (0.0-4.0); Hematocrit 24.2 % (35.0-46.0); Hemoglobin 8.1 gm/dL (11.6-15.3); Lymph # (Auto) 1.9 th/mm3 (1.0-4.8); Lymph % (Auto) 20.5 % (9.0-44.0); Mean Corpuscular HGB Conc 33.4 % (32.0-36.0); Mean Corpuscular Hemoglobin 24.6 pg (27.0-34.0); Mean Corpuscular Volume 73.6 fL (80.0-100.0); Mean Platelet Volume 8.6 fL (7.0-11.0); Mono # (Auto) 0.8 th/mm3 (0.0-0.9); Mono % (Auto) 8.3 % (0.0-8.0); Neut # (Auto) 6.4 th/mm3 (1.8-7.7); Platelet Count 203 th/mm3 (150-450); Red Blood Count 3.29 mil/mm3 (4.00-5.30); Red Cell Distribution Width 16.2 % (11.6-17.2); White Blood Count 9.2 th/mm3 (4.0-11.0)
[2018-04-03] MEDS: Prenatal Vit/Ca/Iron/Folic Acid Tablet PO SCH (10:09)
[2018-04-03] MEDS ORDERED: Measles/Mumps/Rubella Vaccine Inj 0.5 ML Vial SQ ONE (16:00)
[2018-04-03] MEDS ORDERED: Diphtheria/Tetanus/Pertussis Vaccine Inj 0.5 ML Syringe IM ONE (16:00)
[2018-04-03] MEDS: Senna/Docusate Sodium 8.6/50 MG Tablet PO SCH (20:51)
[2018-04-04 02:08] VITALS: RESP 18
--- NOTE | 2018-04-04 08:49 | P.PNOB ---
Subjective Post op day: 2 Interval history: doing well with no complaints Objective Vital Signs/I&O: Vital Signs 04/03/18 19:50 Temperature 98.2 F Pulse Rate 93 H Respiratory Rate 18 Blood Pressure 101/58 L Result Diagrams: 04/03/18 05:52 Objective Remarks: GENERAL: Well-nourished, well-developed patient. CARDIOVASCULAR: Regular rate and rhythm without murmurs, gallops, or rubs. RESPIRATORY: Breath sounds equal bilaterally. No accessory muscle use. ABDOMEN/GI: Abdomen soft, non-tender, bowel sounds present. Incision: Clean, dry and intact. Fundus: Firm, non-tender at umbilicus. GENITOURINARY: Light to moderate bleeding. EXTREMITIES: No cyanosis or edema, non-tender, without signs of DVT. Medications and IVs: Active Medications Acetaminophen (Tylenol) 650 mg PO Q6H PRN PRN Reason: PAIN SCALE 1 TO 2 Citric Acid/Sodium Citrate (Sodium Citrate/Citric Acid Liq) 30 ml PO MANAGER MARITIME PORSHA Stop: 04/06/18 06:29 Cefazolin Sodium/Dextrose (Ancef 2 Gm Premix Inj) 2 gm in 50 mls @ 100 mls/hr IV.SIG MANAGER MARITIME PRN PRN Reason: marketing content coordinator to the OR Stop: 04/06/18 06:16 Last Infusion: 04/02/18 08:00 Dose: Infused Oxytocin (Pitocin 30 Units/Ns 500 Ml Premix) 30 units in 500 mls @ 100 mls/hr IV.SIG UNSCH PRN PRN Reason: Heavy bleeding Ibuprofen (Motrin) 800 mg PO Q8H PRN PRN Reason: cramping Last Admin: 04/04/18 02:53 Dose: 800 mg Ondansetron HCl (Zofran Odt) 4 mg PO Q4H PRN PRN Reason: NAUSEA Oxycodone/Acetaminophen (Percocet 5/325 Mg) 1 tab PO Q4H PRN PRN Reason: PAIN SCALE 3 TO 5 Oxycodone/Acetaminophen (Percocet 5/325 Mg) 2 tab PO Q4H PRN PRN Reason: PAIN SCALE 6 TO 10 Last Admin: 04/04/18 02:53 Dose: 2 tab Vit/Calcium/Iron/Folic Ac (Stuartnatal Plus 3) 1 tab PO DAILY [facility] Last Admin: 04/03/18 10:09 Dose: 1 tab Senna/Docusate Sodium (Lillie-Colace) 1 tab PO BID PORSHA Last Admin: 04/03/18 20:51 Dose: 1 tab Sodium Chloride (Ns Flush) 2 ml IV.FLUSH BID POR[facility] Last Admin: 04/03/18 21:47 Dose: Not Given Sodium Chloride (Ns Flush) 2 ml IV.FLUSH UNSCH PRN PRN Reason: FLUSH AFTER USING IV ACCESS Last Admin: 04/03/18 03:59 Dose: 2 ml Assessment and Plan - Diagnosis (1) Term delivered Code(s): O80 - Encounter for full-term uncomplicated delivery Status: Acute - Plan 22 yo s/p scheduled PLTCS at 39w for suspected macrosomia 1. POD #1: AF, VSS, AM Hb noted and appropriate, continue routine post op and care, discussed precautions, expectations and follow up. Anticipate d/c in next 48hrs - Male . Discussed circumcision, pt andre valdez tomorrow or sometime b4 d/c. POD 2 doing well tolerating anemia needs oral iron
[2018-04-04] MEDS: Senna/Docusate Sodium 8.6/50 MG Tablet PO SCH ×2 (09:30→21:07)
[2018-04-04] MEDS: Prenatal Vit/Ca/Iron/Folic Acid Tablet PO SCH (09:30)
--- NOTE | 2018-04-05 09:01 | P.PNOB ---
Subjective Post op day: 3 Interval history: doing well, passing flatus, pain well controlled. Objective Vital Signs/I&O: Vital Signs 04/04/18 10:53 04/04/18 19:55 04/05/18 07:55 Temperature 98.0 F 98.9 F 98.3 F Pulse Rate 82 81 79 Respiratory Rate 18 18 18 Blood Pressure 96/63 L 115/66 104/50 L Result Diagrams: 04/03/18 05:52 Objective Remarks: GENERAL: Well-nourished, well-developed patient. CARDIOVASCULAR: Regular rate and rhythm without murmurs, gallops, or rubs. RESPIRATORY: Breath sounds equal bilaterally. No accessory muscle use. ABDOMEN/GI: Abdomen soft, non-tender, bowel sounds present. Incision: Clean, dry and intact. Fundus: Firm, non-tender at umbilicus. GENITOURINARY: Light to moderate bleeding. EXTREMITIES: No cyanosis or edema, non-tender, without signs of DVT. Medications and IVs: Active Medications Acetaminophen (Tylenol) 650 mg PO Q6H PRN PRN Reason: PAIN SCALE 1 TO 2 Citric Acid/Sodium Citrate (Sodium Citrate/Citric Acid Liq) 30 ml PO CHIEF RADIOLOGY PORSHA Stop: 04/06/18 06:29 Cefazolin Sodium/Dextrose (Ancef 2 Gm Premix Inj) 2 gm in 50 mls @ 100 mls/hr IV.SIG CHIEF RADIOLOGY PRN PRN Reason: cotton roll packer to the OR Stop: 04/06/18 06:16 Last Infusion: 04/02/18 08:00 Dose: Infused Oxytocin (Pitocin 30 Units/Ns 500 Ml Premix) 30 units in 500 mls @ 100 mls/hr IV.SIG UNSCH PRN PRN Reason: Heavy bleeding Ibuprofen (Motrin) 800 mg PO Q8H PRN PRN Reason: cramping Last Admin: 04/05/18 00:30 Dose: 800 mg Ondansetron HCl (Zofran Odt) 4 mg PO Q4H PRN PRN Reason: NAUSEA Oxycodone/Acetaminophen (Percocet 5/325 Mg) 1 tab PO Q4H PRN PRN Reason: PAIN SCALE 3 TO 5 Last Admin: 04/04/18 09:30 Dose: 1 tab Oxycodone/Acetaminophen (Percocet 5/325 Mg) 2 tab PO Q4H PRN PRN Reason: PAIN SCALE 6 TO 10 Last Admin: 04/05/18 01:01 Dose: 2 tab Vit/Calcium/Iron/Folic Ac (Stuartnatal Plus 3) 1 tab PO DAILY [facility] Last Admin: 04/04/18 09:30 Dose: 1 tab Senna/Docusate Sodium (Lillie-Colace) 1 tab PO BID [facility] Last Admin: 04/04/18 21:07 Dose: 1 tab Sodium Chloride (Ns Flush) 2 ml IV.FLUSH BID [facility] Last Admin: 04/04/18 21:38 Dose: Not Given Sodium Chloride (Ns Flush) 2 ml IV.FLUSH UNSCH PRN PRN Reason: FLUSH AFTER USING IV ACCESS Last Admin: 04/03/18 03:59 Dose: 2 ml Assessment and Plan - Diagnosis (1) Term delivered Code(s): O80 - Encounter for full-term uncomplicated delivery Status: Acute - Plan 22 yo s/p scheduled PLTCS at 39w for suspected macrosomia 1. POD #1: AF, VSS, AM Hb noted and appropriate, continue routine post op and care, discussed precautions, expectations and follow up. Anticipate d/c in next 48hrs - Male . Discussed circumcision, pt andre valdez tomorrow or sometime b4 d/c. POD 2 doing well tolerating anemia needs oral iron POD 3 doing well, d/c today start iron after initial pp visit in 1 wk
[2018-04-05] MEDS: Prenatal Vit/Ca/Iron/Folic Acid Tablet PO SCH (09:22)
[2018-04-05] MEDS: Senna/Docusate Sodium 8.6/50 MG Tablet PO SCH (09:22)
[2018-04-05 20:19] VITALS: BP 116/63; PULSE 91; TEMP 98.8
== END 2018-04-05 20:43 | disposition home or self-care (01) | DRG 788 ==
LOC: H2E 05:38 → H1EA 10:54
PROVIDERS: ADMIT Obstetrics & Gynecology; ATTEND Obstetrics & Gynecology
CPT/HCPCS: 59025; 81001; 85025; 86850; 86900; 86901; J0690; J1200; J1885; J2274; J2405; J2590; J3010; J7120